=== PATIENT | male | born 1980 | race African-American/Black ===

== ENCOUNTER 2022-11-05 10:14 | Emergency (ER) | payer OTHER ==
[~2022-11-05] VITALS: Ht 165.1 cm; Wt 63.5 kg
[2022-11-05] MEDS ORDERED: PREDNISONE50 MG PO (11:09)
== END 2022-11-05 11:17 | disposition home or self-care (01) ==
LOC: ED 10:14
DX: L25.9 Unspecified contact dermatitis, unspecified cause (principal); Z91.013 Allergy to seafood; Z88.8 Allergy status to other drugs, medicaments and biological substances

== ENCOUNTER 2023-11-24 09:10 | Emergency (ER) | payer OTHER ==
[~2023-11-24] VITALS: Ht 165.1 cm; Wt 68.0 kg
[~2023-11-24 09:10] MED LIST: PREDNISONE50 MG PO
[2023-11-24] MEDS ORDERED: PREDNISONE20 M1 PO (10:57)
[2023-11-24] MEDS ORDERED: methylPREDNISolone sod succ 125 MG VIAL IM ONE (11:00)
== END 2023-11-24 11:24 | disposition home or self-care (01) ==
LOC: ED 09:10
DX: L25.9 Unspecified contact dermatitis, unspecified cause (principal); Z91.013 Allergy to seafood

== ENCOUNTER 2024-01-13 08:04 | Emergency (ER) | payer OTHER ==
[~2024-01-13] VITALS: Ht 165.1 cm; Wt 68.0 kg
[~2024-01-13 08:04] MED LIST changes: +PREDNISONE20 M1 PO
[2024-01-13] MEDS ORDERED: FLUORESCEIN SODIUM 1 MG STRIP OPH ONE (08:20)
[2024-01-13] MEDS ORDERED: MEDROL DOSEPAK4 MG PO (08:24)
[2024-01-13] MEDS ORDERED: ZERVIATE1 EACH OP (08:24)
[2024-01-13] MEDS ORDERED: Dexamethasone Sodium Phospha 20 MG/5 ML VIAL IM ONE (08:25)
== END 2024-01-13 09:24 | disposition home or self-care (01) ==
LOC: ED 08:04
DX: H10.13 Acute atopic conjunctivitis, bilateral (principal); Z91.013 Allergy to seafood; Z88.8 Allergy status to other drugs, medicaments and biological substances

== ENCOUNTER 2024-11-13 22:53 | Emergency (ER) | payer OTHER ==
[~2024-11-13 22:53] MED LIST changes: +MEDROL DOSEPAK4 MG PO; +ZERVIATE1 EACH OP
[2024-11-14] MEDS ORDERED: NAPROXEN250 MG PO (00:35)
[2024-11-14] MEDS ORDERED: METHOCARBAMOL750 M1 PO (00:35)
== END 2024-11-14 00:40 | disposition home or self-care (01) ==
LOC: ED 22:53
DX: S39.012A Strain of muscle, fascia and tendon of lower back, initial encounter (principal); R10.9 Unspecified abdominal pain; R07.81 Pleurodynia; Z91.048 Other nonmedicinal substance allergy status; Z91.013 Allergy to seafood; Z79.899 Other long term (current) drug therapy; X58.XXXA Exposure to other specified factors, initial encounter; Y93.89 Activity, other specified; Y92.89 Other specified places as the place of occurrence of the external cause; Y99.8 Other external cause status

== ENCOUNTER 2024-12-06 23:31 | Emergency (ER) | payer OTHER ==
[~2024-12-06] VITALS: Ht 165.1 cm; Wt 72.6 kg
[~2024-12-06 23:31] MED LIST changes: +METHOCARBAMOL750 M1 PO; +NAPROXEN250 MG PO
[2024-12-06] MEDS ORDERED: diphenhydrAMINE hydrochloride 50 MG/ML VIAL IV ONE (23:55)
[2024-12-06] MEDS ORDERED: FAMOTIDINE 50 ML IV ONE (23:55)
== END 2024-12-07 01:52 | disposition home or self-care (01) ==
LOC: ED 23:31
DX: T78.49XA Other allergy, initial encounter (principal); R21 Rash and other nonspecific skin eruption; Z91.013 Allergy to seafood; Z91.048 Other nonmedicinal substance allergy status; Z79.899 Other long term (current) drug therapy; X58.XXXA Exposure to other specified factors, initial encounter

== ENCOUNTER → 2024-12-13 | Outpatient (CLI) | payer OTHER | END | disposition home or self-care (01) | LOC: RESCLI 01:47 | PROVIDERS: ATTEND Student in an Organized Health Care Education/Training Program | DX: R21 Rash and other nonspecific skin eruption (principal); Z13.9 Encounter for screening, unspecified; Z13.220 Encounter for screening for lipoid disorders; J45.909 Unspecified asthma, uncomplicated ==

== ENCOUNTER → 2024-12-14 | Outpatient (CLI) | payer OTHER ==
[2024-12-14 12:07] LABS: BASO # 0.0 10*3/uL (0.0-0.1); BASO % 0.3 % (0.0-1.0); EOS # 0.1 10*3/uL (0.0-0.4); EOS % 1.5 % (1.0-4.0); MEAN CELL VOLUME 95.7 fl (80.0-94.0); MEAN CORPUSCULAR HGB 31.5 pg (27.0-31.0); MEAN PLATELET VOLUME 10.4 fl (9.6-12.3); MONO # 0.4 10*3/uL (0.1-1.0); MONO % 7.3 % (3.0-9.0); NEUT # 3.3 10*3/uL (2.3-7.9); NEUT % 56.5 % (47.0-73.0); NUCLEATED RED BLOOD CELL 0.0 % (0.0-0.0); NUCLEATED RED BLOOD CELL 0.0 10*3/uL (0.0-0.0); PLATELET COUNT AUTOMATED 167 10*3/uL (130-400); RED CELL DISTRI WIDTH 13.0 % (0-14.5)
[2024-12-14 12:32] LABS: BUN 15 mg/dl (9-23); LDL CHOLESTEROL 88 mg/dL (9-159); SGPT/ALT 25 U/L (5-49)
== END | disposition home or self-care (01) ==
LOC: LAB 11:51
PROVIDERS: Student in an Organized Health Care Education/Training Program; ATTEND Internal Medicine
DX: Z13.220 Encounter for screening for lipoid disorders (principal); Z13.9 Encounter for screening, unspecified; Z13.1 Encounter for screening for diabetes mellitus; R21 Rash and other nonspecific skin eruption

== ENCOUNTER → 2024-12-21 | Outpatient (CLI) | payer OTHER | END | disposition home or self-care (01) | LOC: RESCLI 09:37 | PROVIDERS: ATTEND Internal Medicine | DX: R21 Rash and other nonspecific skin eruption (principal); J45.909 Unspecified asthma, uncomplicated ==

== ENCOUNTER → 2025-01-24 | Outpatient (CLI) | payer OTHER | END | disposition home or self-care (01) | LOC: RESCLI 11:12 | PROVIDERS: ATTEND Internal Medicine | DX: R21 Rash and other nonspecific skin eruption (principal); J45.909 Unspecified asthma, uncomplicated; Z79.899 Other long term (current) drug therapy; Z88.8 Allergy status to other drugs, medicaments and biological substances ==